=== PATIENT | male | born 1960 | race Caucasian/White ===

== ENCOUNTER 2017-09-23 07:43 | Inpatient (IN) | payer SELFPAY ==
[~2017-09-23] VITALS: Ht 170.2 cm; Wt 97.6 kg
[2017-09-23] VITALS (9 sets, daily range): BP systolic 116–150; BP diastolic 66–84; PULSE 68–86; RESP 14–21; TEMP 97.9–99.1; O2SAT 93–100
[2017-09-23] MEDS ORDERED: SENNOSIDES 8.6 MG TAB PO PRN (08:00)
[2017-09-23] MEDS ORDERED: MAGNESIUM HYDROXIDE SUSP 30 ML CUP PO PRN (08:00)
[2017-09-23] MEDS ORDERED: MISCELLANEOUS NURSING INFORMATION XX SCH (08:00)
[2017-09-23] MEDS ORDERED: LACTULOSE SYRUP 20 GM/30 ML CUP PO PRN (08:00)
[2017-09-23] MEDS ORDERED: HYDROmorphone HCL PF 1 MG/ML VIAL IV PUSH PRN (08:00)
[2017-09-23] MEDS ORDERED: CHLORHEXIDINE GLUCONATE 2 % 1 PACK (2 CLOTHS) TOP PRN (08:00)
[2017-09-23] MEDS ORDERED: BISACODYL 10 MG SUPP RECTAL PRN (08:00)
--- NOTE | 2017-09-23 08:01 | PD ---
HPI Chief Complaint: trauma transfer Time Seen by Provider: 07:55 Travel History International Travel<30 days: No Contact w/Intl Traveler<30days: No Traveled to known affect area: No History of Present Illness HPI The patient is a 56-year-old male who presents emergency department from [facility] as a trauma transfer. The patient apparently fell off a barstool yesterday, was evaluated at [facility] noted to have an intracranial hemorrhage. The patient does admit to drinking alcohol yesterday, was visiting [facility] from [place], [place]. He does not recall the fall. He denies any headache, neck pain, chest pain, shortness breath, nausea, vomiting, abdominal pain, or focal deficits. He does have a history of chronic left knee pain which occasionally "gives out ". He does take a baby aspirin intermittently, denies taking any other anticoagulants. He denies any acute focal deficits. Symptoms are moderate. PFSH Past Medical History Narrative Medical Asthma Past Surgical History Surgical History: No Previous Surgery Social History Alcohol Use: Yes Tobacco Use: Yes Allergies-Medications (Allergen,Severity, Reaction): Coded Allergies: No Known Allergies (Unverified , 09/23/17) Reported Meds & Prescriptions Reported Meds & Active Scripts Active Reported Symbicort Inh (Budesonide/Formoterol Fumarate) 80-4.5 Mcg/Act Aero 1 Puff INH Q12HR Proventil Hfa 6.7 GM Inh (Albuterol Sulfate) 90 Mcg/Act Aer 2 Puff INH Q4-6H PRN Aspirin Children's (Aspirin) 81 Mg Chew 81 Mg CHEW DAILY Review of Systems Except as stated in HPI: all other systems reviewed are Neg HENT: No: Headaches, Neck Pain Cardiovascular: No: Chest Pain or Discomfort Respiratory: No: Shortness of Breath Gastrointestinal: No: Nausea, Vomiting, Abdominal Pain Neurologic: No: Focal Abnormalities, Headache, Change in Mentation, Paresthesia , Sensory Disturbance Psychiatric: Positive: Substance Abuse (patient admits to drinking alcohol yesterday) Physical Exam Narrative GENERAL: Awake, alert, pleasant 56-year-old male who appears his stated age and is in no acute respiratory distress. SKIN: Focused skin assessment warm/dry. HEAD: Atraumatic. Normocephalic. EYES: Pupils equal and round. 3 mm bilateral and reactive. ENT: No nasal bleeding or discharge. Breath smells of alcohol. NECK: Trachea midline. No JVD. CARDIOVASCULAR: Regular rate and rhythm. No murmur appreciated. RESPIRATORY: No accessory muscle use. Clear to auscultation. Breath sounds equal bilaterally. GASTROINTESTINAL: Abdomen soft, non-tender, nondistended. No rebound tenderness. MUSCULOSKELETAL: No obvious deformities. No clubbing. No cyanosis. No edema. Back: No tenderness over the thoracic or lumbar vertebrae. NEUROLOGICAL: Awake and alert. No obvious cranial nerve deficits. Motor grossly within normal limits. Normal speech. Nonfocal. Patient is oriented to month, year, and gasket former. PSYCHIATRIC: Appropriate mood and affect; insight and judgment normal. Data Data Last Documented VS Vital Signs Date Time Temp Pulse Resp B/P (MAP) Pulse Ox O2 Delivery O2 Flow Rate FiO2 09/23/17 07:49 97.9 86 21 150/84 (106) 95 Orders Orders Admit To Inpatient (09/23/17 ) Code Status (09/23/17 07:56) Vital Signs (Adult) JUSTICE.Q1H (09/23/17 07:56) Elevate Head Of Bed (09/23/17 07:56) Sodium Chlor 0.9% 1000 Ml Inj (Ns 1000 M (09/23/17 07:56) Hydromorphone Pf Inj (Dilaudid Pf Inj) (09/23/17 08:00) Famotidine Inj (Pepcid Inj) (09/23/17 09:00) Famotidine (Pepcid) (09/23/17 09:00) Ondansetron Inj (Zofran Inj) (09/23/17 08:00) Complete Blood Count With Diff (09/24/17 04:00) Basic Metabolic Panel (Bmp) (09/24/17 04:00) Shoe Sewing Machine Operator And Tender / Telemetry JUSTICE.Q8H (09/23/17 07:56) Scd Bilateral/Knee High JUSTICE.BID (09/23/17 07:56) ^ Initiate Protocol (09/23/17 07:56) Instruction (09/23/17 07:56) [facility] Nursing Information (09/23/17 08:00) Chlorhexidine 2% Cloth (Chlorhexidine 2% (09/24/17 04:00) Chlorhexidine 2% Cloth (Chlorhexidine 2% (09/23/17 08:00) Mrsa Pcr Surveillance (09/23/17 07:56) Docusate Sodium-Senna (Cara-Colace) (09/23/17 09:00) Magnesium Hydroxide Liq (Milk Of Magnesi (09/23/17 08:00) Sennosides (Senokot) (09/23/17 08:00) Bisacodyl Supp (Dulcolax Supp) (09/23/17 08:00) Lactulose Liq (Lactulose Liq) (09/23/17 08:00) Inpatient Certification (09/23/17 ) Diet Clear Liquid (09/23/17 Breakfast) Acetaminophen 1000 Mg/100 Ml (Ofirmev 10 (09/23/17 09:00) Ct Brain W/O Iv Contrast(Rout) (09/23/17 ) Admit Order (Ed Use Only) (09/23/17 08:50) MDM Medical Decision Making Medical Screen Exam Complete: Yes Emergency Medical Condition: Yes Medical Record Reviewed: Yes Interpretation(s) Labs performed at [facility] WBC 5.8, hemoglobin 15.8, hematocrit 45.3, platelet count 179 PT 13.0, INR 1.0, PTT 23.3 Alcohol 304 Blood type B positive Sodium 136, potassium 4.4, chloride 94, CO2 28, anion gap 14, glucose 135, BUN 10, creatinine 0.82, calcium 8.9, crit and Claritin 110, GFR 97.5 CT of the brain reveals trace acute subdural hemorrhage along the anterior falx on the right, the right tentorial leaflets, and the right middle cranial fossa. Additionally, there is a small amount of acute subarachnoid hemorrhage in the right frontotemporal region. CT of the spine cervical without contrast reveals no acute cervical spine fracture or malalignment. Partially imaged subdural hemorrhage along the right tentorium as previously reported on the same head CT. Degenerative disc disease of the cervical spineis C5-C6 Withers moderate bilateral neural foraminal narrowing and mild canal stenosis EKG at [facility] reveals normal sinus rhythm with a rate 85. Nonspecific T wave changes. Repeat EKG after CPR reveals normal sinus rhythm with nonspecific T-wave changes. No evidence of STEMI. Last Impressions Head CT 09/23/17 0000 Signed Impressions: Service Date/Time: Saturday, September 23, 2017 08:35 - CONCLUSION: Abnormal exam with intraparenchymal blood products identified within the right frontal lobe, right parietal lobe and right temporal lobe. Small amount of subarachnoid blood identified in the region of the sylvian fissure. There is mild effacement of the sulci within this region. No skull fractures seen. Viviana Michele MD Differential Diagnosis Differential diagnosis includes closed head injury, intracranial hemorrhage, subarachnoid hemorrhage, subdural hemorrhage, syncope, cervical fracture, alcohol intoxication, hyponatremia. Narrative Course The patient was a transfer from [facility], already had IV established. The patient was undressed and placed in a gown. I discussed the patient with the admitting trauma surgeon who recommends repeat CT the brain, therefore, noncontrast repeat CT the brain was obtained. The patient denies any acute headache, therefore, pain medications were withheld. The patient will be admitted to the intensive surgical care unit. The patient returned from CT, complain of nausea, and then had an episode of bradycardia and went into asystole. CPR was instituted for 1 minute, the patient was administered oxygen via bag valve ventilation. The patient then regained consciousness and pulses. The patient immediately was alert and oriented, was slightly diaphoretic. We reviewed the telemetry monitoring which did reveal bradycardia going into a short run of asystole. I discussed the findings immediately with the trauma surgeon. The patient may require consultation with the loss prevention detective and/or electronics mechanic apprentice. Defibrillator pads were placed on the patient at bedside. Critical Care Narrative Aggregate critical care time was 15 minutes. Time to perform other separately billable procedures was not included in the critical care time. My time did not include minutes spent treating any other patients simultaneously or on activities that did not directly contribute to the patient's treatment. The services I provided to this patient were to treat and/or prevent clinically significant deterioration that could result in: Anoxia, hypoxia, aspiration, arrhythmia, . I provided critical care services requiring my management, as noted below: Chart data review, documentation time, medication orders and management, vital sign assessments/reviewing monitor data, ordering and reviewing lab tests, ordering and interpreting/reviewing x-rays and diagnostic studies, care of the patient and discussion of the patient with the admitting physicians. Physician Communication Physician Communication I discussed the patient with the trauma surgeon, the patient will be admitted to the intensive surgical care unit. Diagnosis Primary Impression: Subarachnoid hemorrhage Additional Impressions: Subdural hemorrhage Alcohol intoxication Qualified Codes: F10.929 - Alcohol use, unspecified with intoxication, unspecified Admitting Information Admitting Physician Requests: Admit Condition: Serious Walker Sanchez MD Sep 23, 2017 08:01
[2017-09-23] MEDS ORDERED: ASPI81CH7 CHEW (08:03)
[2017-09-23] MEDS ORDERED: SYMB80AE INH (08:03)
[2017-09-23] MEDS ORDERED: ALBU6.7H INH (08:03)
--- NOTE | 2017-09-23 08:50 | RADRPT ---
EXAM DATE/TIME: 09/23/2017 08:35 [facility] COMPARISON: No previous studies available for comparison. INDICATIONS : Fall from stool last night, possible intracranial hemorrhage. RADIATION DOSE: 56.35 CTDIvol (mGy) MEDICAL HISTORY : Asthma. SURGICAL HISTORY : None. ENCOUNTER: Initial ACUITY: 1 day PAIN SCALE: 3/10 LOCATION: Bilateral cranial TECHNIQUE: Multiple contiguous axial images were obtained of the head. Using automated exposure control and adj ustment of the mA and/or kV according to patient size, radiation dose was kept as low as reasonably a chievable to obtain optimal diagnostic quality images. DICOM format image data is available electro nically for review and comparison. FINDINGS: This is an abnormal exam. CEREBRUM: There is acute high density intraparenchymal hemorrhage identified within the region of the right tem poral lobe, right parietal lobe and right frontal lobe with blood products also identified within the subarachnoid space of the right parietal region. There is no evidence of mass effect. The sulci appe ar mildly effaced adjacent to the sylvian fissure at the site of subarachnoid blood. No evidence of m idline shift. The ventricles are normal. POSTERIOR FOSSA: The cerebellum and brainstem are intact. The 4th ventricle is midline. The cerebellopontine angle i s unremarkable. EXTRACRANIAL: The visualized portion of the orbits is intact. SKULL: The calvaria is intact. No evidence of skull fracture. CONCLUSION: Abnormal exam with intraparenchymal blood products identified within the right frontal lobe, right pa rietal lobe and right temporal lobe. Small amount of subarachnoid blood identified in the region of t he sylvian fissure. There is mild effacement of the sulci within this region. No skull fractures seen . Viviana Michele MD on September 23, 2017 at 8:43 Board Certified Radiologist. This report was verified electronically.
[2017-09-23] MEDS: ACETAMINOPHEN 1000 MG/100 ML 100 ML IV SCH ×3 (08:53→20:28)
[2017-09-23] MEDS: FAMOTIDINE 20 MG/2 ML VIAL IV PUSH SCH ×2 (08:53→20:29)
[2017-09-23] MEDS: DOCUSATE SODIUM 50 MG/SENNA 8.6 MG TAB PO SCH ×3 (08:53→20:29)
[2017-09-23] MEDS: SODIUM CHLOR 0.9% 1000 ML INJ 1,000 ML IV SCH ×2 (08:54→19:51)
[2017-09-23] MEDS ORDERED: FAMOTIDINE 20 MG TAB PO SCH (09:00)
[2017-09-23] MEDS ORDERED: ETOMIDATE 40 MG/20 ML VIAL ONE (09:05)
[2017-09-23] MEDS ORDERED: ONDANSETRON HCL 4 MG/2 ML VIAL IV PUSH ONE (09:15)
[2017-09-23 10:10] LABS: AUTOMATED NEUTROPHIL # 6.1 TH/MM3 (1.8-7.7); BASOPHIL % 0.1 % (0.0-2.0); HEMATOCRIT 42.8 % (39.0-51.0); HEMOGLOBIN 15.2 GM/DL (13.0-17.0); LYMPH % 11.5 % (9.0-44.0); LYMPHOCYTE # 0.8 TH/MM3 (1.0-4.8); MEAN CELL VOLUME 90.9 FL (80.0-100.0); MEAN CORPUSCULAR HEMOGLOBIN 32.2 PG (27.0-34.0); MEAN CORPUSCULAR HGB CONC 35.4 % (32.0-36.0); MEAN PLATELET VOLUME 6.8 FL (7.0-11.0); MONO % 3.8 % (0.0-8.0); MONOCYTE # 0.3 TH/MM3 (0-0.9); NEUT % 84.6 % (16.0-70.0); PLATELET COUNT 181 TH/MM3 (150-450); WHITE BLOOD COUNT 7.2 TH/MM3 (4.0-11.0)
[2017-09-23 10:18] LABS: INTERNATIONAL NORMALIZED RATIO 1.1 RATIO; PROTHROMBIN TIME - PATIENT 10.7 SEC (9.8-11.6)
[2017-09-23 10:33] LABS: BICARBONATE 23.2 MEQ/L (21.0-32.0); BLOOD UREA NITROGEN 9 MG/DL (7-18); CHLORIDE 100 MEQ/L (98-107); CREATININE 0.89 MG/DL (0.60-1.30); GLOMERULAR FILTRATION RATE 88 ML/MIN (>89); GLUCOSE,RANDOM 117 MG/DL (74-106); SODIUM (NA) 136 MEQ/L (136-145)
[2017-09-23 10:36] LABS: TROPONIN I LESS THAN 0.02 NG/ML (0.02-0.05)
[2017-09-23] MEDS ORDERED: ALBUTEROL SULFATE 90 MCG/ACT HFA 8 GM INHALER INH PRN (11:15)
[2017-09-23] MEDS: MULTIVITAMIN INJ 10 ML, THIAMINE INJ 100 MG, FOLIC ACID INJ 1 MG in SODIUM CHLORID 0.9%... IV SCH (11:25)
--- NOTE | 2017-09-23 11:25 | HHI.HP ---
History of Present Illness Primary Care Physician No Primary Care Physician Admission Diagnosis subarachnoid hemorrhage, subdural hemorrhage, alcohol intoxication Diagnoses: History of Present Illness 56 y.o male transfer from outside institution fell form bar stool and hit head- workup shows TBI with SAH/SDH,had short episode of SB and asystole had CPR for one minute-and stabilized with normal BP-GCS 15,his GCS was 14 in the transferring institution-it however improved to 15 in [place],neuro intact,no other complaints. Review of Systems Constitutional: DENIES: Diaphoretic episodes, Fatigue, Fever, Weight gain, Weight loss, Chills, Dizziness, Change in appetite, Night Sweats Eyes: DENIES: Blurred vision, Diplopia, Eye inflammation, Eye pain, Vision loss , Photosensitivity, Double Vision Ears, nose, mouth, throat: DENIES: Tinnitus, Hearing loss, Vertigo, Nasal discharge, Oral lesions, Throat pain, Hoarseness, Ear Pain, Running Nose, Epistaxis, Sinus Pain, Toothache, Odynophagia Respiratory: DENIES: Apneas, Cough, Snoring, Wheezing, Hemoptysis, Sputum production, Shortness of breath Cardiovascular: DENIES: Chest pain, Palpitations, Syncope, Dyspnea on Exertion , PND, Lower Extremity Edema, Orthopnea, Claudication Gastrointestinal: DENIES: Abdominal pain, Black stools, Bloody stools, Constipation, Diarrhea, Nausea, Vomiting, Difficulty Swallowing, Anorexia Genitourinary: DENIES: Sexual dysfunction, Urinary frequency, Urinary incontinence, Urgency, Hematuria, Dysuria, Nocturia, Penile Discharge, Testicular Pain, Testicular Swelling Musculoskeletal: DENIES: Joint pain, Muscle aches, Stiffness, Joint Swelling, Back pain, Neck pain Integumentary: DENIES: Abnormal pigmentation, Nail changes, Pruritus, Rash Hematologic/lymphatic: DENIES: Bruising, Lymphadenopathy Immunologic/allergic: DENIES: Eczema, Urticaria Neurologic: DENIES: Abnormal gait, Headache, Localized weakness, Paresthesias, Seizures, Speech Problems, Tremor, Poor Balance Psychiatric: DENIES: Anxiety, Confusion, Mood changes, Depression, Hallucinations, Agitation, Suicidal Ideation, Homicidal Ideation, Delusions Past Family Social History Allergies: Coded Allergies: No Known Allergies (Unverified , 09/23/17) Past Medical History Asthma Past Surgical History none Reported Medications asthma meds,ASA Social History ETOH occ Physical Exam Vital Signs Vital Signs Date Time Temp Pulse Resp B/P (MAP) Pulse Ox O2 Delivery O2 Flow Rate FiO2 09/23/17 10:23 09/23/17 09:18 98 Nasal Cannula 2.00 09/23/17 09:09 71 14 144/80 (101) 100 Nasal Cannula 2.00 09/23/17 07:49 97.9 86 21 150/84 (106) 95 Physical Exam GENERAL: This is a well-nourished, well-developed patient, in no apparent distress. SKIN: . Cool and dry. HEAD: Atraumatic. Normocephalic. EYES: Pupils equal round and reactive. Extraocular motions intact. ENT: Nose without bleeding, purulent drainage or septal hematoma. Airway patent. NECK: Trachea midline. No JVD or lymphadenopathy. Supple, nontender. CARDIOVASCULAR: Regular rate and rhythm without murmurs, gallops, or rubs. RESPIRATORY: Clear to auscultation. Breath sounds equal bilaterally. No wheezes , rales, or rhonchi. GASTROINTESTINAL: Abdomen soft, non-tender, nondistended No guarding. MUSCULOSKELETAL: Extremities without clubbing, cyanosis, or edema. No joint tenderness, effusion, or edema noted. No calf tenderness. NEUROLOGICAL: Awake and alert. Cranial nerves II through XII intact. Motor and sensory grossly within normal limits. Five out of 5 muscle strength in all muscle groups. Normal speech. Laboratory Laboratory Tests Test 09/23/17 09:56 White Blood Count 7.2 Red Blood Count 4.70 Hemoglobin 15.2 Hematocrit 42.8 Mean Corpuscular Volume 90.9 Mean Corpuscular Hemoglobin 32.2 Mean Corpuscular Hemoglobin Concent 35.4 Red Cell Distribution Width 14.0 Platelet Count 181 Mean Platelet Volume 6.8 Neutrophils (%) (Auto) 84.6 Lymphocytes (%) (Auto) 11.5 Monocytes (%) (Auto) 3.8 Eosinophils (%) (Auto) 0.0 Basophils (%) (Auto) 0.1 Neutrophils # (Auto) 6.1 Lymphocytes # (Auto) 0.8 Monocytes # (Auto) 0.3 Eosinophils # (Auto) 0.0 Basophils # (Auto) 0.0 CBC Comment DIFF FINAL Differential Comment Prothrombin Time 10.7 Prothromb Time International Ratio 1.1 Activated Partial Thromboplast Time 22.2 Blood Urea Nitrogen 9 Creatinine 0.89 Random Glucose 117 Calcium Level 8.0 Sodium Level 136 Potassium Level 4.1 Chloride Level 100 Carbon Dioxide Level 23.2 Anion Gap 13 Estimat Glomerular Filtration Rate 88 Troponin I LESS THAN 0.02 Result Diagram: 09/23/17 0956 09/23/17 0956 Imaging Last [address] 09/23/17 0000 Signed Impressions: Service Date/Time: Saturday, September 23, 2017 08:35 - CONCLUSION: Abnormal exam with intraparenchymal blood products identified within the right frontal lobe, right parietal lobe and right temporal lobe. Small amount of subarachnoid blood identified in the region of the sylvian fissure. There is mild effacement of the sulci within this region. No skull fractures seen. MD John Mejia VTE Risk Assessment Caprinheidi VTE Risk Assessment: Mod/High Risk (score >= 2) VTE Pharm Contraindication: High risk for bleeding Caprini Risk Assessment Model Point Value = 1 Point Value = 2 Point Value = 3 Point Value = 5 Age 41-60 Minor surgery BMI > 25 kg/m2 Swollen legs Varicose veins or History of unexplained or recurrent spontaneous Oral contraceptives or hormone replacement Sepsis (< 1 month) Serious lung disease, including pneumonia (< 1 month) Abnormal pulmonary function Acute myocardial infarction Congestive heart failure (< 1 month) History of inflammatory bowel disease Medical patient at bed rest Age 61-74 Arthroscopic surgery Major open surgery (> 45 min) Laparoscopic surgery (> 45 min) Malignancy Confined to bed (> 72 hours) Immobilizing plaster cast Central venous access Age >= 75 History of VTE Family history of VTE Factor V Leiden Prothrombin [id number] Lupus anticoagulant Anticardiolipin antibodies Elevated serum homocysteine Heparin-induced thrombocytopenia Other congenital or acquired thrombophilia Stroke (< 1 month) Elective arthroplasty Hip, pelvis, or leg fracture Acute spinal cord injury (< 1 month) Prophylaxis Regimen Total Risk Factor Score Risk Level Prophylaxis Regimen 0-1 Low Early ambulation 2 Moderate Order ONE of the following: *Sequential Compression Device (SCD) *Heparin 5000 units SQ BID 3-4 Higher Order ONE of the following medications: *Heparin 5000 units SQ TID *Enoxaparin/Lovenox 40 mg SQ daily (WT < 150 kg, CrCl > 30 mL/min) *Enoxaparin/Lovenox 30 mg SQ daily (WT < 150 kg, CrCl > 10-29 mL/min) *Enoxaparin/Lovenox 30 mg SQ BID (WT < 150 kg, CrCl > 30 mL/min) AND/OR *Sequential Compression Device (SCD) 5 or more Highest Order ONE of the following medications: *Heparin 5000 units SQ TID (Preferred with Epidurals) *Enoxaparin/Lovenox 40 mg SQ daily (WT < 150 kg, CrCl > 30 mL/min) *Enoxaparin/Lovenox 30 mg SQ daily (WT < 150 kg, CrCl > 10-29 mL/min) *Enoxaparin/Lovenox 30 mg SQ BID (WT < 150 kg, CrCl > 30 mL/min) AND *Sequential Compression Device (SCD) Assessment and Plan Assessment and Plan SAH,IPH gcs 15 short episode of asystole admit ICU Melchor VELASQUEZ consult FU CT in Joy Hernandez MD Sep 23, 2017 11:25
--- NOTE | 2017-09-23 12:39 | MB ---
cc: Felipe Breaux MD DATE OF CONSULT: 09/23/2017 REASON FOR CONSULTATION: Brief episode of asystole. HISTORY OF PRESENT ILLNESS: The patient is a 56-year-old white male with a history of asthma and hypertension, who was brought in as a trauma alert after falling from a bar stool, causing considerable head trauma and subarachnoid hemorrhage. At some point yesterday after returning from a CT scan, the patient apparently developed bradycardia and then brief asystole necessitating CPR for a minute. The patient denies any prior history of syncope or lightheadedness. Chronically, he has rare episodes of vertigo. He also denies chest pain, change in chronic mild to moderate dyspnea, palpitations, pedal edema, and paroxysmal nocturnal dyspnea. PAST MEDICAL HISTORY: 1. Asthma. 2. Hypertension. CARDIAC MEDICATIONS AT HOME: Aspirin 81 mg daily. ALLERGIES: NO KNOWN DRUG ALLERGIES. FAMILY HISTORY: There is no significant family history of cardiac disease. SOCIAL HISTORY: The patient denies any history of tobacco abuse. He drinks occasional alcohol. REVIEW OF SYSTEMS: As in history of present illness, otherwise negative or noncontributory. He also currently denies headache, nausea, vomiting, abdominal pain, melena, dyspepsia, and bright red blood per rectum. PHYSICAL EXAMINATION: VITAL SIGNS: His blood pressure 116/66 with a pulse of 75, respirations 16. GENERAL: He is a well-developed, well-nourished white male, in no acute distress. NECK: Jugular venous pressure is normal. Carotid pulses are 2+ bilaterally and without bruits. CHEST: Reveals clear lungs sanders. CARDIAC: He has a regular rhythm and rate without S3, S4, or murmur. ABDOMEN: He has a soft, nontender abdomen Bowel sounds are present. There is no definite hepatosplenomegaly. EXTREMITIES: Reveals no clubbing, cyanosis, or edema. LABORATORY DATA: Includes normal CBC. Potassium 4.1, BUN 9, creatinine 0.89. Troponin less than 0.02. EKG is currently not available. IMPRESSION: Brief episode of bradycardia degenerating into asystole in this 56-year-old white male with a history of hypertension and asthma, admitted as a trauma alert after falling off a bar stool, causing head trauma. The patient has had no further bradyarrhythmias. I suspect the episode of bradycardia was due to his subarachnoid hemorrhage. He is on no atrioventricular juwan suppressing drugs. There is no evidence for acute coronary syndrome. RECOMMENDATIONS: 1. Continue to monitor. 2. Please call if the patient has recurrent significant bradyarrhythmias. 3. Check a 2-D echo to assess his left ventricular function. MD LEELA Keith/DARWIN , 12:21 PM , 12:38 PM MTDScooter
[2017-09-23] MEDS: levETIRAcetam INJ 500 MG in SODIUM CHLORIDE 0.9% INJ 100 ML IV SCH ×2 (12:51→20:28)
[2017-09-23 17:33] LABS: TROPONIN I LESS THAN 0.02 NG/ML (0.02-0.05)
--- NOTE | 2017-09-23 18:21 | EKG ---
Date Performed: 09/23/2017 Time Performed: 07:57:32 PTAGE: 56 years EKG: Sinus rhythm NONSPECIFIC T-WAVE ABNORMALITY BORDERLINE ECG NO PREVIOUS TRACING DOCTOR: Marlon Eason Interpretating Date/Time 09/23/2017 18:18:58
--- NOTE | 2017-09-23 18:22 | EKG ---
Date Performed: 09/23/2017 Time Performed: 09:05:52 PTAGE: 56 years EKG: Sinus rhythm NONSPECIFIC T-WAVE ABNORMALITY BORDERLINE ECG Compared to PREVIOUS TRACING , no change PREVIOUS TRACING DOCTOR: Marlon Eason Interpretating Date/Time 09/23/2017 18:19:16
--- NOTE | 2017-09-23 20:01 | PD.CONS ---
History of Present Illness Service Neurosurgery Consult Requested By General surgery trauma service Reason for Consult Traumatic brain injury Primary Care Physician No Primary Care Physician Diagnoses: History of Present Illness Mr. Amos is a pleasant 86-year-old gentleman who states that he was at a bar last evening and recalls getting up from the barstool and walking. He does not remember anything after that until he woke up in the hospital. He Was Transferred to [facility] after being seen at an outside hospital. Initial All Coma Score 15 upon arrival. He complains of mild headache. No nausea or vomiting today. He has no significant neck or low back pain. No blurred vision diplopia. No long-term memory loss. No significant pain weakness or numbness in the extremities except for some chronic left knee pain. He reportedly did have an episode of bradycardia requiring brief CPR for resuscitation after his CT scan in the emergency room. Due to this event he has been seen by cardiology and a 2-D echocardiogram recommended. 56 y.o male transfer from outside institution fell form bar stool and hit head- workup shows TBI with SAH/SDH,had short episode of SB and asystole had CPR for one minute-and stabilized with normal BP-GCS 15,his GCS was 14 in the transferring institution-it however improved to 15 in [place],neuro intact,no other complaints. Review of Systems Constitutional: DENIES: Fever, Dizziness Eyes: DENIES: Blurred vision, Diplopia Ears, nose, mouth, throat: DENIES: Hearing loss, Vertigo Respiratory: DENIES: Shortness of breath Cardiovascular: DENIES: Chest pain Gastrointestinal: DENIES: Abdominal pain, Nausea, Vomiting Musculoskeletal: COMPLAINS OF: Joint pain, Muscle aches, DENIES: Back pain, Neck pain Hematologic/lymphatic: DENIES: Bruising Neurologic: COMPLAINS OF: Headache, DENIES: Abnormal gait Psychiatric: DENIES: Anxiety, Confusion Past Family Social History Allergies: Coded Allergies: No Known Allergies (Unverified , 09/23/17) Past Medical History Hypertension Asthma No history of significant cardiac disease, diabetes, gastrointestinal disease Past Surgical History No major surgeries reported Reported Medications Reported Meds & Active Scripts Active Reported Symbicort Inh (Budesonide/Formoterol Fumarate) 80-4.5 Mcg/Act Aero 1 Puff INH Q12HR Proventil Hfa 6.7 GM Inh (Albuterol Sulfate) 90 Mcg/Act Aer 2 Puff INH Q4-6H PRN Aspirin Children's (Aspirin) 81 Mg Chew 81 Mg CHEW DAILY Family History No history of cardiac disease, diabetes, cancer in the family Social History Does not smoke cigarettes Occasional alcohol Physical Exam Vital Signs Vital Signs Date Time Temp Pulse Resp B/P (MAP) Pulse Ox O2 Delivery O2 Flow Rate FiO2 09/23/17 19:00 94 Nasal Cannula 09/23/17 18:00 75 09/23/17 16:00 98.5 81 17 122/66 (84) 93 09/23/17 16:00 81 09/23/17 14:00 74 09/23/17 12:00 98.8 75 16 116/66 (83) 93 09/23/17 12:00 75 09/23/17 10:30 75 09/23/17 10:30 99.1 76 16 144/76 (98) 97 09/23/17 10:30 97 Room Air 09/23/17 10:23 09/23/17 09:18 98 Nasal Cannula 2.00 09/23/17 09:09 71 14 144/80 (101) 100 Nasal Cannula 2.00 09/23/17 07:49 97.9 86 21 150/84 (106) 95 Physical Exam GENERAL: This is a well-nourished, well-developed patient, no apparent distress. SKIN: No abrasions, contusion, rash noted. Skin warm and dry. HEAD: Atraumatic. Normocephalic. No temporal or scalp tenderness. EYES: Sclerae are clear and nonicteric ENT: No facial edema or ecchymosis. No periorbital edema. No CSF otorrhea or rhinorrhea. No palpable facial fracture or deformity. NECK: Trachea midline. No cervical spine tenderness. CARDIOVASCULAR: Regular rate and rhythm without murmurs, gallops, or rubs. RESPIRATORY: Clear to auscultation. Breath sounds equal bilaterally. No wheezes , rales, or rhonchi. GASTROINTESTINAL: Abdomen soft, non-tender, nondistended. No hepato-splenomegaly , or palpable masses. No guarding. MUSCULOSKELETAL: Extremities without cyanosis, or edema. No joint tenderness except left knee with range of motion, or edema noted. No calf tenderness. Dorsalis pedis pulses 2+ bilateral NEUROLOGICAL: Awake and alert Oriented X 3 Speech is clear Conversant and appropriate Follow simple commands well Answers questions appropriately Reasonable judgment and insight Recent and remote memory are intact No evidence of anxiety or depression Pupils are equal and reactive to accommodation. Extra-ocular movements, visual sanders to confrontation, facial sensorimotor, tongue, palate, sternocleidomastoid testing, hearing to finger rub testing, and bilateral shoulder shrug are all intact. Sensation is intact to light touch in all extremities Strength normal major flexion and extension groups all extremities Gricelda's absent bilaterally No ankle clonus Plantar responses absent bilateral Fine motor movements intact upper extremities Laboratory Laboratory Tests Test 09/23/17 09:56 09/23/17 11:15 09/23/17 16:36 White Blood Count 7.2 Red Blood Count 4.70 Hemoglobin 15.2 Hematocrit 42.8 Mean Corpuscular Volume 90.9 Mean Corpuscular Hemoglobin 32.2 Mean Corpuscular Hemoglobin Concent 35.4 Red Cell Distribution Width 14.0 Platelet Count 181 Mean Platelet Volume 6.8 Neutrophils (%) (Auto) 84.6 Lymphocytes (%) (Auto) 11.5 Monocytes (%) (Auto) 3.8 Eosinophils (%) (Auto) 0.0 Basophils (%) (Auto) 0.1 Neutrophils # (Auto) 6.1 Lymphocytes # (Auto) 0.8 Monocytes # (Auto) 0.3 Eosinophils # (Auto) 0.0 Basophils # (Auto) 0.0 CBC Comment DIFF FINAL Differential Comment Prothrombin Time 10.7 Prothromb Time International Ratio 1.1 Activated Partial Thromboplast Time 22.2 Blood Urea Nitrogen 9 Creatinine 0.89 Random Glucose 117 Calcium Level 8.0 Sodium Level 136 Potassium Level 4.1 Chloride Level 100 Carbon Dioxide Level 23.2 Anion Gap 13 Estimat Glomerular Filtration Rate 88 Troponin I LESS THAN 0.02 LESS THAN 0.02 Nasal Screen MRSA (PCR) MRSA NOT DETECTED Total Creatine Kinase 285 Result Diagram: 09/23/17 0956 09/23/17 0956 Imaging 09/23/17 CT scan head images reviewed by the undersigned. Agree with findings as noted below: Head CT 09/23/17 0000 Signed Impressions: Service Date/Time: Saturday, September 23, 2017 08:35 - CONCLUSION: Abnormal exam with intraparenchymal blood products identified within the right frontal lobe, right parietal lobe and right temporal lobe. Small amount of subarachnoid blood identified in the region of the sylvian fissure. There is mild effacement of the sulci within this region. No skull fractures seen. Viviana Michele MD Assessment and Plan Assessment and Plan Impression: 1. Traumatic brain injury with relatively mild primarily right parietal subarachnoid hemorrhage without significant mass effect. Recommendations: Findings were discussed with the patient. May advance diet and activity as tolerated Follow-up CT scan of the head 09/24/17. Nontender bowel DVT prophylaxis Hosea Carter MD Sep 23, 2017 20:01
[2017-09-23] MEDS: BUDESONIDE-FORMOTEROL 80/4.5 MCG INHALER INH SCH ×2 (20:18→21:00)
[2017-09-23] MEDS: HYDROmorphone HCL PF 2 MG/ML VIAL IV PUSH PRN (22:07)
[2017-09-24] VITALS (10 sets, daily range): BP systolic 140–174; BP diastolic 71–88; PULSE 57–64; RESP 14–18; TEMP 98.2–99.5; O2SAT 93–97
[2017-09-24 00:17] LABS: TROPONIN I LESS THAN 0.02 NG/ML (0.02-0.05)
[2017-09-24] MEDS: HYDROmorphone HCL PF 2 MG/ML VIAL IV PUSH PRN ×2 (02:44→06:22)
[2017-09-24] MEDS: ACETAMINOPHEN 1000 MG/100 ML 100 ML IV SCH (03:00)
[2017-09-24] MEDS ORDERED: CHLORHEXIDINE GLUCONATE 2 % 1 PACK (2 CLOTHS) TOP SCH (04:00)
[2017-09-24 05:25] LABS: AUTOMATED NEUTROPHIL # 4.9 TH/MM3 (1.8-7.7); BASOPHIL # 0.1 TH/MM3 (0-0.2); EOSINOPHIL % 0.6 % (0.0-4.0); HEMATOCRIT 43.9 % (39.0-51.0); HEMOGLOBIN 15.2 GM/DL (13.0-17.0); LYMPH % 16.1 % (9.0-44.0); LYMPHOCYTE # 1.1 TH/MM3 (1.0-4.8); MEAN CELL VOLUME 92.2 FL (80.0-100.0); MEAN CORPUSCULAR HGB CONC 34.7 % (32.0-36.0); MEAN PLATELET VOLUME 7.3 FL (7.0-11.0); MONO % 8.9 % (0.0-8.0); MONOCYTE # 0.6 TH/MM3 (0-0.9); NEUT % 73.4 % (16.0-70.0); PLATELET COUNT 175 TH/MM3 (150-450); RED BLOOD COUNT 4.76 MIL/MM3 (4.50-5.90); WHITE BLOOD COUNT 6.7 TH/MM3 (4.0-11.0)
[2017-09-24 05:56] LABS: BICARBONATE 28.4 MEQ/L (21.0-32.0); CALCIUM 8.4 MG/DL (8.5-10.1); CREATININE 0.95 MG/DL (0.60-1.30)
--- NOTE | 2017-09-24 06:13 | RADRPT ---
EXAM DATE/TIME: 09/24/2017 05:25 [facility] COMPARISON: CT BRAIN W/O CONTRAST, September 23, 2017, 8:35. INDICATIONS : Follow up traumatic brain injury. RADIATION DOSE: 56.35 CTDIvol (mGy) MEDICAL HISTORY : Non-responsive. SURGICAL HISTORY : Non-responsive. ENCOUNTER: Subsequent ACUITY: 1 day PAIN SCALE: Non-responsive LOCATION: cranial TECHNIQUE: Multiple contiguous axial images were obtained of the head. Using automated exposure control and adj ustment of the mA and/or kV according to patient size, radiation dose was kept as low as reasonably a chievable to obtain optimal diagnostic quality images. DICOM format image data is available electro nically for review and comparison. FINDINGS: CEREBRUM: The ventricles are normal for age. Focal areas of parenchymal hemorrhage in the right frontal, tempor al and parietal lobes are unchanged. Some subarachnoid blood in the region of the sylvian fissure. Ar ea of encephalomalacia in the right olfactory tract. No extra-axial fluid collections are seen. POSTERIOR FOSSA: The cerebellum and brainstem are intact. The 4th ventricle is midline. The cerebellopontine angle i s unremarkable. EXTRACRANIAL: The visualized portion of the orbits is intact. SKULL: The calvaria is intact. No evidence of skull fracture. CONCLUSION: 1. Stable areas of right-sided parenchymal and subarachnoid hemorrhage. 2. Resolving contusion/encephalomalacia in the right olfactory tract. 3. No midline shift. No new hemorrhage. Yobani Mccall MD on September 24, 2017 at 6:07 Board Certified Radiologist. This report was verified electronically.
[2017-09-24] MEDS: SODIUM CHLOR 0.9% 1000 ML INJ 1,000 ML IV SCH (06:19)
[2017-09-24] MEDS: BUDESONIDE-FORMOTEROL 80/4.5 MCG INHALER INH SCH ×2 (08:43→21:21)
[2017-09-24] MEDS: DOCUSATE SODIUM 50 MG/SENNA 8.6 MG TAB PO SCH ×2 (08:43→21:19)
[2017-09-24] MEDS: FAMOTIDINE 20 MG/2 ML VIAL IV PUSH SCH (08:43)
[2017-09-24] MEDS: levETIRAcetam INJ 500 MG in SODIUM CHLORIDE 0.9% INJ 100 ML IV SCH (08:43)
[2017-09-24] MEDS: ONDANSETRON HCL 4 MG/2 ML VIAL IV PUSH PRN ×2 (09:27→18:15)
[2017-09-24] MEDS ORDERED: oxyCODONE/ACETAMINOPHEN 10 MG/325 MG TAB PO PRN (09:30)
[2017-09-24] MEDS ORDERED: LISINOPRIL 10 MG TAB PO SCH (10:30)
--- NOTE | 2017-09-24 13:34 | RADRPT ---
EXAM DATE/TIME: 09/24/2017 12:34 [facility] COMPARISON: No previous studies available for comparison. INDICATIONS : Syncope. MEDICAL HISTORY : Headache. Asthma. Tobacco use. Anticoagulant therapy, Aspirin. SURGICAL HISTORY : None. ENCOUNTER: Initial ACUITY: 1 day PAIN SCORE: 0/10 LOCATION: Bilateral neck PEAK SYSTOLIC VELOCITIES (cm/sec): ICA/CCA RATIO: Right: 0.8 Left: 0.8 ICA: Right: 59 Left: 65 CCA: Right: 71 Left: 78 ECA: Right: 92 Left: 75 VERTEBRAL: Right: 54 antegrade Left: 50 antegrade Elevated flow velocities and ICA/CCA ratios have been found to correlate with increased degrees of vessel stenosis, calculated as percentage of diameter relative to a normal segment of distal ICA/CCA FINDINGS: RIGHT CAROTID: No significant stenosis is visualized. There is minimal calcified atherosclerotic plaque at the bifur cation. The waveforms are within normal limits. LEFT CAROTID: No significant stenosis is visualized. There is minimal calcified atherosclerotic plaque at the bifur cation. The waveforms are within normal limits. VERTEBRAL ARTERIES: Antegrade flow is seen in both vertebral arteries. MISCELLANEOUS: None. CONCLUSION: 1. Minimal are described plaquing of the bifurcations. 2. No hemodynamically significant carotid artery stenosis identified. Zhang Koenig MD on September 24, 2017 at 13:22 Board Certified Radiologist. This report was verified electronically.
[2017-09-24] MEDS: MULTIVITAMIN INJ 10 ML, THIAMINE INJ 100 MG, FOLIC ACID INJ 1 MG in SODIUM CHLORID 0.9%... IV SCH (14:51)
--- NOTE | 2017-09-24 16:29 | HHI.CCPN ---
Subjective Brief History 56 y.o male transfer from outside institution fell form bar stool and hit head. Workup reveals TBI with SAH/SDH,had short episode of SB and asystole had CPR for one minute-and stabilized with normal BP-GCS 15,his GCS was 14 in the transferring institution-it however improved to 15 in [place],neuro intact,no other complaints. Since arrival patient has been awake and alert complaining about headache and dizziness 24 Hour Review/Hospital Course 09/24/2017 Patient awake alert oriented Neurologically fully intact [place] Coma Scale 15 Motorically stable no lateralization no facial droop or deficit Bilateral equal tendon reflexes and no pathologic reflexes Patient still complaining about some dizziness Able to eat drink can stand Repeat CT scan reveals gradual resolution of the sub-dural and subarachnoid bleed Transfer patient to floor Further care per clinical indices most likely patient will be discharged home tomorrow Objective Vital Signs Date Time Temp Pulse Resp B/P (MAP) Pulse Ox O2 Delivery O2 Flow Rate FiO2 09/24/17 16:00 99.5 61 16 140/82 (101) 96 09/24/17 08:00 Room Air 09/23/17 09:18 2.00 Intake and Output 09/24/17 09/24/17 09/25/17 08:00 16:00 00:00 Intake Total 1069 ml 325 ml Output Total 1850 ml Balance -781 ml 325 ml Result Diagram: 09/24/17 0341 09/24/17 0341 Imaging Last [address] 09/24/17 0600 Signed Impressions: Service Date/Time: Sunday, September 24, 2017 05:25 - CONCLUSION: 1. Stable areas of right-sided parenchymal and subarachnoid hemorrhage. 2. Resolving contusion/encephalomalacia in the right olfactory tract. 3. No midline shift. No new hemorrhage. Yobani Mccall MD Disinhibition Score: 14.00 Aggression Score: 14.00 Lability Score: 14.00 Agitated Behavior Total Score: 14 Assessment and Plan Attestation Critical care time 32 minute Malinda Hurtado MD Sep 24, 2017 16:29
[2017-09-24] MEDS: oxyCODONE/ACETAMINOPHEN 5 MG/325 MG TAB PO PRN ×2 (17:05→21:20)
--- NOTE | 2017-09-24 18:33 | HHI.NSPN ---
History Chief Complaint: headache Interval History 56-year-old male fell at a bar while intoxicated. Complains of persistent headache and dizziness. No nausea vomiting Exam Results Vital Signs Date Time Temp Pulse Resp B/P (MAP) Pulse Ox O2 Delivery O2 Flow Rate FiO2 09/24/17 18:11 167/87 (113) 09/24/17 18:02 98.2 58 18 95 09/24/17 08:00 Room Air 09/23/17 09:18 2.00 Intake and Output 09/24/17 09/24/17 09/25/17 08:00 16:00 00:00 Intake Total 1069 ml 325 ml 100 ml Output Total 1850 ml 650 ml Balance -781 ml 325 ml -550 ml Physical Examination Gen.: Normally developed gentleman in no apparent distress Respirations regular, nonlabored Neurologic: Awake and alert Conversant appropriately Speech clear Extraocular movements intact Facial motor movement symmetric Sensation light touch intact all extremities Strength within normal limits major flexion-extension groups all extremities 09/24/17 follow-up CT scan head images reviewed by the undersigned. Stable primarily right frontoparietal parenchymal and subarachnoid hemorrhage with improving subfrontal contusion without significant mass effect. No significant hydrocephalus. No pneumocephalus. Medical Decision Making Impression and Plan Impression: 1. Traumatic brain injury. Primarily right frontoparietal contusions and subarachnoid hemorrhage without significant mass effect. Stable on follow-up CT scan 09/24/17 Plan: Patient is stable for transfer to regular floor from neurosurgical standpoint. May advance diet and activity as tolerated Continue non-chemical DVT prophylaxis Ulcer prophylaxis Hosea Carter MD Sep 24, 2017 18:33
[2017-09-24] MEDS: levETIRAcetam 500 MG TAB PO SCH (21:19)
[2017-09-24] MEDS: FAMOTIDINE 20 MG TAB PO SCH (21:19)
[2017-09-24] MEDS: LISINOPRIL 20 MG TAB PO SCH (21:19)
[2017-09-25 00:33] VITALS: BP 163/90; PULSE 50; RESP 17; TEMP 98.5; O2SAT 94
[2017-09-25 04:41] VITALS: BP 148/81; PULSE 59; RESP 17; TEMP 97.9; O2SAT 94
[2017-09-25 08:00] VITALS: BP 153/88; PULSE 65; RESP 17; TEMP 98.4; O2SAT 94
[2017-09-25] MEDS ORDERED: amLODIPine BESYLATE 5 MG TAB PO SCH (09:00)
[2017-09-25] MEDS: MULTIVITAMIN INJ 10 ML, THIAMINE INJ 100 MG, FOLIC ACID INJ 1 MG in SODIUM CHLORID 0.9%... IV SCH (09:32)
[2017-09-25] MEDS: levETIRAcetam 500 MG TAB PO SCH ×2 (09:33→20:19)
[2017-09-25] MEDS: LISINOPRIL 20 MG TAB PO SCH ×2 (09:33→20:19)
[2017-09-25] MEDS: FAMOTIDINE 20 MG TAB PO SCH ×2 (09:33→20:19)
[2017-09-25] MEDS: DOCUSATE SODIUM 50 MG/SENNA 8.6 MG TAB PO SCH ×2 (09:33→20:19)
[2017-09-25] MEDS: ONDANSETRON HCL 4 MG/2 ML VIAL IV PUSH PRN (09:34)
[2017-09-25] MEDS: BUDESONIDE-FORMOTEROL 80/4.5 MCG INHALER INH SCH ×2 (09:34→20:19)
[2017-09-25] MEDS: ACETAMINOPHEN 325 MG TAB PO PRN ×2 (09:34→15:08)
[2017-09-25 12:23] VITALS: BP 172/89; PULSE 59; RESP 18; TEMP 98.1; O2SAT 94
[2017-09-25 16:00] VITALS: BP 145/79; PULSE 66; RESP 18; TEMP 97.7; O2SAT 94
--- NOTE | 2017-09-25 16:25 | HHI.PR ---
Subjective Subjective Notes Hypertensive on 2 BP agents Waiting on Echo results Patient complains of vertigo Objective Vitals/I&O Vital Signs Date Time Temp Pulse Resp B/P (MAP) Pulse Ox O2 Delivery O2 Flow Rate FiO2 09/25/17 12:23 98.1 59 18 172/89 (116) 94 09/24/17 08:00 Room Air 09/23/17 09:18 2.00 Labs Laboratory Tests Test 09/23/17 09:56 09/23/17 11:15 09/23/17 23:17 09/24/17 03:41 Prothrombin Time 10.7 SEC Prothromb Time International Ratio 1.1 RATIO Activated Partial Thromboplast Time 22.2 SEC Nasal Screen MRSA (PCR) MRSA NOT DETECTED Total Creatine Kinase 265 U/L Troponin I LESS THAN 0.02 NG/ML White Blood Count 6.7 TH/MM3 Red Blood Count 4.76 MIL/MM3 Hemoglobin 15.2 GM/DL Hematocrit 43.9 % Mean Corpuscular Volume 92.2 FL Mean Corpuscular Hemoglobin 32.0 PG Mean Corpuscular Hemoglobin Concent 34.7 % Red Cell Distribution Width 14.0 % Platelet Count 175 TH/MM3 Mean Platelet Volume 7.3 FL Neutrophils (%) (Auto) 73.4 % Lymphocytes (%) (Auto) 16.1 % Monocytes (%) (Auto) 8.9 % Eosinophils (%) (Auto) 0.6 % Basophils (%) (Auto) 1.0 % Neutrophils # (Auto) 4.9 TH/MM3 Lymphocytes # (Auto) 1.1 TH/MM3 Monocytes # (Auto) 0.6 TH/MM3 Eosinophils # (Auto) 0.0 TH/MM3 Basophils # (Auto) 0.1 TH/MM3 CBC Comment DIFF FINAL Differential Comment Blood Urea Nitrogen 10 MG/DL Creatinine 0.95 MG/DL Random Glucose 87 MG/DL Calcium Level 8.4 MG/DL Sodium Level 141 MEQ/L Potassium Level 4.0 MEQ/L Chloride Level 106 MEQ/L Carbon Dioxide Level 28.4 MEQ/L Anion Gap 7 MEQ/L Estimat Glomerular Filtration Rate 81 ML/MIN Radiology Last Impressions Head CT 09/24/17 0600 Signed Impressions: Service Date/Time: Sunday, September 24, 2017 05:25 - CONCLUSION: 1. Stable areas of right-sided parenchymal and subarachnoid hemorrhage. 2. Resolving contusion/encephalomalacia in the right olfactory tract. 3. No midline shift. No new hemorrhage. Yobani Mccall MD Carotid Artery Ultrasound 09/24/17 0000 Signed Impressions: Service Date/Time: Sunday, September 24, 2017 12:34 - CONCLUSION: 1. Minimal are described plaquing of the bifurcations. 2. No hemodynamically significant carotid artery stenosis identified. Zhang Koenig MD Disinhibition Score: 14.00 Aggression Score: 14.00 Lability Score: 14.00 Agitated Behavior Total Score: 14 Narrative Exam GENERAL: 56-year-old well-nourished, well developed male lying in bed in no acute distress. SKIN: Warm and dry. HEAD: Normocephalic. EYES: Pupils equal and round. No scleral icterus. ENT: No nasal bleeding or discharge. Mucous membranes pink and moist. NECK: Trachea midline. No JVD. CARDIOVASCULAR: Regular rate and rhythm. RESPIRATORY: No accessory muscle use. Lungs clear to auscultation. Breath sounds equal bilaterally. GASTROINTESTINAL: Abdomen soft, non-tender, nondistended. + BS. MUSCULOSKELETAL: Extremities without cyanosis, or edema. MAEW, + perfused NEUROLOGICAL: Awake and alert. Normal speech. A/P Assessment and Plan [place] [facility] [place]: Fell off a barstool striking his head. + LOC. Required short period of CPR with ROSC after 1 minute. Transferred for trauma services. INJURIES: RIGHT frontal, parietal, temporal IPH SAH PMHx: asthma, ETOH use, HTN RIGHT frontal, parietal, temporal IPH, SAH Neurosurgery consulted Supportive care PO Keppra Repeat CT brain on 09/24 stable Avoid second head injury Post-concussive education Fall US Carotids- minimal plaque BILAT EKG- SR Echo pending HTN Lisinopril 20mg PO BID Norvasc 5mg QD Still hypertensive despite 2 agents RN to notify Cardiology for further recommendations Plan of care discussed with patient at bedside. Collaborating trauma M.Scooter. agrees with plan. Case management consulted to assist with discharge planning. Plan to DC 1-2 days. Attending Statement The exam, history, and the medical decision-making described in the above note were completed with the assistance of the mid-level provider. I reviewed and agree with the findings presented. I attest that I had a [id number] encounter with the patient on the same day, and personally performed and documented my assessment and findings in the medical record. Patient s/p fall from standing Pain controlled Neuro Exam: GCS15, awake/alert, oriented X3 working with PT daily, ambulating safely DC planning next 24h Alanna Dunham Sep 25, 2017 16:25 Alonzo Pretty MD Sep 25, 2017 23:29
--- NOTE | 2017-09-25 19:44 | ECHRPT ---
Indication: CONCLUSIONS Normal left ventricular size. Mild concentric left ventricular hypertrophy. The left ventricular systolic function is normal with an estimated ejection fraction in the range of 55-60%. The right atrial size is [id number] dilated. No atrial level shunt is demonstrated by color flow Doppler interrogation. Trace mitral valve regurgitation. Aortic valve sclerosis is present. Mild aortic valve regurgitation. There is trace tricuspid valve regurgitation. BP: 174 / 88 HR: 64 Rhythm: Sinus MEASUREMENTS (Male / Female) Normal Values Technical Quality:Fair 2D ECHO LV Diastolic Diameter PLAX 3.9 cm 4.2 - 5.9 / 3.9 - 5.3 cm LV Systolic Diameter PLAX 2.9 cm IVS Diastolic Thickness 1.4 cm 0.6 - 1.0 / 0.6 - 0.9 cm LVPW Diastolic Thickness 1.3 cm 0.6 - 1.0 / 0.6 - 0.9 cm LV Relative Wall Thickness 0.7 RV Internal Dim ED PLAX 4.0 cm LVOT Diameter 2.5 cm M-MODE Aortic Root Diameter MM 4.3 cm LA Systolic Diameter MM 3.6 cm LA Ao Ratio MM 0.8 AV Cusp Separation MM 1.8 cm DOPPLER AV Peak Velocity 138.0 cm/s AV Peak Gradient 7.6 mmHg LVOT Peak Velocity 108.0 cm/s LVOT Peak Gradient 4.7 mmHg AV Area Cont Eq pk 3.8 cm MV Area PHT 2.5 cm Mitral E Point Velocity 45.1 cm/s Mitral A Point Velocity 62.5 cm/s Mitral E to A Ratio 0.7 LV E' Lateral Velocity 8.7 cm/s Mitral E to LV E' Lateral Ratio 5.2 LV E' Septal Velocity 7.3 cm/s Mitral E to LV E' Septal Ratio 6.1 FINDINGS LEFT VENTRICLE Normal left ventricular size. Mild concentric left ventricular hypertrophy. The left ventricular systolic function is normal with an estimated ejection fraction in the range of 55-60%. RIGHT VENTRICLE Normal right ventricular size and systolic function. LEFT ATRIUM The left atrial size is normal. RIGHT ATRIUM The right atrial size is [id number] dilated. ATRIAL SEPTUM No atrial level shunt is demonstrated by color flow Doppler interrogation. AORTA The aortic root and proximal ascending aorta are not well visualized. MITRAL VALVE Trace mitral valve regurgitation. AORTIC VALVE Aortic valve sclerosis is present. Mild aortic valve regurgitation. TRICUSPID VALVE There is trace tricuspid valve regurgitation. PULMONARY VALVE Trivial pulmonary valve regurgitation. VESSELS The inferior vena cava is normal in size. PERICARDIUM No pericardial effusion. Danis Douglass MD, FACC (Electronically Signed) Final Date:25 September 2017 19:43
--- NOTE | 2017-09-25 19:52 | HHI.NSPN ---
(Lalo Liao) History Chief Complaint: Dizziness (Lalo Liao) Interval History 09/23: Mr. Amos is a pleasant 86-year-old gentleman who states that he was at a bar last evening and recalls getting up from the barstool and walking. He does not remember anything after that until he woke up in the hospital. He Was Transferred to [facility] after being seen at an outside hospital. Initial All Coma Score 15 upon arrival. He complains of mild headache. No nausea or vomiting today. He has no significant neck or low back pain. No blurred vision diplopia. No long-term memory loss. No significant pain weakness or numbness in the extremities except for some chronic left knee pain. He reportedly did have an episode of bradycardia requiring brief CPR for resuscitation after his CT scan in the emergency room. Due to this event he has been seen by cardiology and a 2-D echocardiogram recommended. 56 y.o male transfer from outside institution fell form bar stool and hit head- workup shows TBI with SAH/SDH,had short episode of SB and asystole had CPR for one minute-and stabilized with normal BP-GCS 15,his GCS was 14 in the transferring institution-it however improved to 15 in [place],neuro intact,no other complaints. 09/24: 56-year-old male fell at a bar while intoxicated. Complains of persistent headache and dizziness. No nausea vomiting 09/25: The patient is awake and watching TV when seen this afternoon. He does say he has a slight headache and some dizziness when he stands or turns to the right. He denies any pain, numbness or tingling to the extremities. He remains neurologically intact. (Lalo Liao) Exam Results 09/24/17 09/24/17 09/25/17 09/25/17 09/26/17 09/26/17 06:00 18:00 06:00 18:00 06:00 18:00 Intake Total 220 ml 1274 ml 240 ml Output Total 1550 ml 950 ml Balance -1330 ml 324 ml 240 ml Intake Oral 120 ml 220 ml 240 ml IV Total 100 ml 1054 ml Output Urine Total 1550 ml 950 ml # Voids 2 2 # Bowel Movements 0 Laboratory Tests Test 09/23/17 09:56 09/23/17 11:15 09/23/17 16:36 09/23/17 23:17 White Blood Count 7.2 TH/MM3 Red Blood Count 4.70 MIL/MM3 Hemoglobin 15.2 GM/DL Hematocrit 42.8 % Mean Corpuscular Volume 90.9 FL Mean Corpuscular Hemoglobin 32.2 PG Mean Corpuscular Hemoglobin Concent 35.4 % Red Cell Distribution Width 14.0 % Platelet Count 181 TH/MM3 Mean Platelet Volume 6.8 FL Neutrophils (%) (Auto) 84.6 % Lymphocytes (%) (Auto) 11.5 % Monocytes (%) (Auto) 3.8 % Eosinophils (%) (Auto) 0.0 % Basophils (%) (Auto) 0.1 % Neutrophils # (Auto) 6.1 TH/MM3 Lymphocytes # (Auto) 0.8 TH/MM3 Monocytes # (Auto) 0.3 TH/MM3 Eosinophils # (Auto) 0.0 TH/MM3 Basophils # (Auto) 0.0 TH/MM3 CBC Comment DIFF FINAL Differential Comment Prothrombin Time 10.7 SEC Prothromb Time International Ratio 1.1 RATIO Activated Partial Thromboplast Time 22.2 SEC Blood Urea Nitrogen 9 MG/DL Creatinine 0.89 MG/DL Random Glucose 117 MG/DL Calcium Level 8.0 MG/DL Sodium Level 136 MEQ/L Potassium Level 4.1 MEQ/L Chloride Level 100 MEQ/L Carbon Dioxide Level 23.2 MEQ/L Anion Gap 13 MEQ/L Estimat Glomerular Filtration Rate 88 ML/MIN Troponin I LESS THAN 0.02 NG/ML LESS THAN 0.02 NG/ML LESS THAN 0.02 NG/ML Nasal Screen MRSA (PCR) MRSA NOT DETECTED Total Creatine Kinase 285 U/L 265 U/L Test 09/24/17 03:41 White Blood Count 6.7 TH/MM3 Red Blood Count 4.76 MIL/MM3 Hemoglobin 15.2 GM/DL Hematocrit 43.9 % Mean Corpuscular Volume 92.2 FL Mean Corpuscular Hemoglobin 32.0 PG Mean Corpuscular Hemoglobin Concent 34.7 % Red Cell Distribution Width 14.0 % Platelet Count 175 TH/MM3 Mean Platelet Volume 7.3 FL Neutrophils (%) (Auto) 73.4 % Lymphocytes (%) (Auto) 16.1 % Monocytes (%) (Auto) 8.9 % Eosinophils (%) (Auto) 0.6 % Basophils (%) (Auto) 1.0 % Neutrophils # (Auto) 4.9 TH/MM3 Lymphocytes # (Auto) 1.1 TH/MM3 Monocytes # (Auto) 0.6 TH/MM3 Eosinophils # (Auto) 0.0 TH/MM3 Basophils # (Auto) 0.1 TH/MM3 CBC Comment DIFF FINAL Differential Comment Blood Urea Nitrogen 10 MG/DL Creatinine 0.95 MG/DL Random Glucose 87 MG/DL Calcium Level 8.4 MG/DL Sodium Level 141 MEQ/L Potassium Level 4.0 MEQ/L Chloride Level 106 MEQ/L Carbon Dioxide Level 28.4 MEQ/L Anion Gap 7 MEQ/L Estimat Glomerular Filtration Rate 81 ML/MIN Orders Procedure Category Date Status Time Admit To Inpatient ADMITTING 09/23/17 Transmitted Code Status CODE 09/23/17 Transmitted 07:56 Vital Signs (Adult) JUSTICE 09/23/17 In Process 07:56 Elevate Head Of Bed JUSTICE 09/23/17 In Process 07:56 Sodium Chlor 0.9% MED 09/23/17 Complete 1000 Ml Inj (Ns 1000 M 07:56 Hydromorphone Pf Inj MED 09/23/17 Complete (Dilaudid Pf Inj) 08:00 Famotidine Inj MED 09/23/17 Complete (Pepcid Inj) 09:00 Famotidine (Pepcid) MED 09/23/17 Complete 09:00 Ondansetron Inj MED 09/23/17 In Process (Zofran Inj) 08:00 Complete Blood Count LAB 09/24/17 Complete With Diff 04:00 Basic Metabolic Panel LAB 09/24/17 Complete (Bmp) 04:00 Supervisor Lace Tearing / JUSTICE 09/23/17 Complete Telemetry 07:56 Scd Bilateral/Knee JUSTICE 09/23/17 In Process High 07:56 ^ Initiate Protocol JUSTICE 09/23/17 In Process 07:56 Instruction JUSTICE 09/23/17 In Process 07:56 [facility] MED 09/23/17 Complete Information 08:00 Chlorhexidine 2% MED 09/24/17 Complete Cloth (Chlorhexidine 04:00 Chlorhexidine 2% MED 09/23/17 Complete Cloth (Chlorhexidine 08:00 Mrsa Pcr Surveillance LAB 09/23/17 Complete 07:56 Docusate Sodium-Senna MED 09/23/17 In Process (Cara-Colace) 09:00 Magnesium Hydroxide MED 09/23/17 In Process Liq (Milk Of Magnesi 08:00 Sennosides (Senokot) MED 09/23/17 In Process 08:00 Bisacodyl Supp MED 09/23/17 In Process (Dulcolax Supp) 08:00 Lactulose Liq MED 09/23/17 In Process (Lactulose Liq) 08:00 Inpatient ADMITTING 09/23/17 Transmitted Certification Diet Clear Liquid DIET 09/23/17 Complete Breakfast Acetaminophen 1000 MED 09/23/17 Complete Mg/100 Ml (Ofirmev 10 09:00 Ct Brain W/O Iv RADCT 09/23/17 Resulted Contrast(Rout) Admit Order (Ed Use ADMITTING 09/23/17 Transmitted Only) 08:50 Ondansetron Inj MED 09/23/17 Complete (Zofran Inj) 09:15 Etomidate Inj MED 09/23/17 Complete (Amidate Inj) 09:05 Levetiracetam Inj MED 09/23/17 Complete (Keppra Inj) 09:30 Consult Neurosurgery CONS 09/23/17 Transmitted Consult Jes Gts CONS 09/23/17 Transmitted Activity Bed Rest JUSTICE 09/23/17 In Process 09:25 Intake + Output JUSTICE 09/23/17 Complete 09:25 Multivitamin Inj MED 09/23/17 Complete (Mvi-12 Inj)... 10:00 Complete Blood Count LAB 09/23/17 Complete With Diff 09:32 Basic Metabolic Panel LAB 09/23/17 Complete (Bmp) 09:32 Troponin I LAB 09/23/17 Complete 09:32 Electrocardiogram CAV 09/23/17 Resulted Consult Billing Coordinator CONS 09/23/17 Transmitted Coag Profile LAB 09/23/17 Complete 09:32 (Hub Use Only)Inp Phy CONS 09/23/17 Transmitted Cons/Ref (Hub Use Only)Inp Phy CONS 09/23/17 Transmitted Cons/Ref Consult Cardiology CONS 09/23/17 Transmitted (Hub Use Only)Inp Phy CONS 09/23/17 Transmitted Cons/Ref Albuterol Hfa Inh MED 09/23/17 In Process (Proair Hfa Inh) 11:15 Budoysvanyon-Formot 80-4.5 MED 09/23/17 In Process Mcg Inh (Symbicort 11:15 Troponin I LAB 09/23/17 Complete 16:00 Troponin I LAB 09/23/17 Complete 22:00 Creatine Kinase (Cpk) LAB 09/23/17 Complete 16:00 Creatine Kinase (Cpk) LAB 09/23/17 Complete 22:00 Case Management CONS 09/23/17 Transmitted Consult Consult Pt Eval & PT 09/23/17 Logged Treat 11:38 Electrocardiogram CAV 09/23/17 Resulted 07:57 Family Notification JUSTICE 09/23/17 Complete 13:10 Audit-Alcohol JUSTICE 09/23/17 In Process Screening Assess 13:10 Alcohol Withdrawal JUSTICE 09/23/17 In Process Asmt-Ciwa 13:10 Teaching Record: JUSTICE 09/23/17 Complete Alcohol 13:10 Ct Brain W/O Iv RADCT 09/24/17 Resulted Contrast(Rout) 06:00 Hydromorphone Pf Inj MED 09/23/17 Complete (Dilaudid Pf Inj) 22:15 Levetiracetam (Keppra) MED 09/24/17 In Process 21:00 Famotidine (Pepcid) MED 09/24/17 In Process 21:00 Patient Transfer ADMITTING 09/24/17 Transmitted Activity Oob With JUSTICE 09/24/17 In Process Assistance 09:26 Us Carotid Arteries RADUS 09/24/17 Resulted Comp Bilat Oxycodone-Acetamin MED 09/24/17 In Process 5-325 Mg (Percocet 09:30 Oxycodone-Acetamin MED 09/24/17 Complete 10-325 Mg (Percocet 1 09:30 Lisinopril (Prinivil) MED 09/24/17 Complete 10:30 Trauma Office Use NTRACS 09/23/17 Transmitted Only Diet Regular Basic DIET 09/24/17 Transmitted Dinner Acetaminophen MED 09/24/17 In Process (Tylenol) 21:00 Lisinopril (Prinivil) MED 09/24/17 In Process 21:00 Amlodipine (Norvasc) MED 09/25/17 Complete 09:00 Echo 2d Comp With ECH 09/25/17 Resulted Doppler Clonidine (Catapres) MED 09/25/17 In Process 21:00 Amlodipine (Norvasc) MED 09/26/17 In Process 09:00 Vital Signs Date Time Temp Pulse Resp B/P (MAP) Pulse Ox O2 Delivery O2 Flow Rate FiO2 09/25/17 16:00 97.7 66 18 145/79 (101) 94 09/25/17 12:23 98.1 59 18 172/89 (116) 94 09/25/17 08:00 98.4 65 17 153/88 (109) 94 09/25/17 04:41 97.9 59 17 148/81 (103) 94 09/25/17 00:33 98.5 50 17 163/90 (114) 94 09/24/17 20:13 98.4 57 17 163/88 (113) 95 09/24/17 18:11 167/87 (113) 09/24/17 18:02 98.2 58 18 174/88 (116) 95 09/24/17 16:00 99.5 61 16 140/82 (101) 96 09/24/17 15:23 16 09/24/17 12:00 64 09/24/17 12:00 98.7 64 16 142/84 (103) 94 09/24/17 08:00 97 Room Air 09/24/17 08:00 64 09/24/17 08:00 99.0 64 16 151/85 (107) 97 09/24/17 06:03 63 09/24/17 04:21 60 16 141/79 (99) 93 09/24/17 04:20 63 09/24/17 00:00 64 09/24/17 00:00 64 14 150/71 (97) 95 09/23/17 23:01 98.6 70 14 142/75 (97) 94 09/23/17 22:59 68 09/23/17 19:00 94 Nasal Cannula 09/23/17 18:00 75 09/23/17 16:00 98.5 81 17 122/66 (84) 93 09/23/17 16:00 81 09/23/17 14:00 74 09/23/17 12:00 98.8 75 16 116/66 (83) 93 09/23/17 12:00 75 09/23/17 10:30 75 09/23/17 10:30 99.1 76 16 144/76 (98) 97 09/23/17 10:30 97 Room Air 09/23/17 10:23 09/23/17 09:18 98 Nasal Cannula 2.00 09/23/17 09:09 71 14 144/80 (101) 100 Nasal Cannula 2.00 09/23/17 07:49 97.9 86 21 150/84 (106) 95 (Lalo Liao) Physical Examination GENERAL: Awake & alert, watching TV. Affect essentially normal, readily interacts. No apparent distress. HEENT: Normocephalic, atraumatic. PERRLA 3 mm brisk, EOMI. MMM & pink, tongue midline to protrusion. MUSCULOSKELETAL: XIONG spontaneously & purposefully. TTP at left knee which is chronic. NEUROLOGICAL: AAOx3. Speech clear & appropriate. Follows simple commands w/o difficulty. CN II through XII grossly intact. PERRLA 3 mm brisk, EOMI. Tongue midline to protrusion. Sensation is intact to light touch to all extremities. Motor strength is 5/5 to all major flexion & extension muscle groups of the extremities, to include the wrist flexors & extensors and the hand intrinsics & extrinsics. (Lalo Liao) Lab, Micro, Other Results Recent Impressions Head CT 09/24/17 0600 Signed Impressions: Service Date/Time: Sunday, September 24, 2017 05:25 - CONCLUSION: 1. Stable areas of right-sided parenchymal and subarachnoid hemorrhage. 2. Resolving contusion/encephalomalacia in the right olfactory tract. 3. No midline shift. No new hemorrhage. Yobani Mccall MD Carotid Artery Ultrasound 09/24/17 0000 Signed Impressions: Service Date/Time: Sunday, September 24, 2017 12:34 - CONCLUSION: 1. Minimal are described plaquing of the bifurcations. 2. No hemodynamically significant carotid artery stenosis identified. Zhang Koenig MD Head CT 09/23/17 0000 Signed Impressions: Service Date/Time: Saturday, September 23, 2017 08:35 - CONCLUSION: Abnormal exam with intraparenchymal blood products identified within the right frontal lobe, right parietal lobe and right temporal lobe. Small amount of subarachnoid blood identified in the region of the sylvian fissure. There is mild effacement of the sulci within this region. No skull fractures seen. Viviana Michele MD Laboratory Tests Test 09/23/17 09:56 09/23/17 11:15 09/23/17 16:36 09/23/17 23:17 White Blood Count 7.2 TH/MM3 Red Blood Count 4.70 MIL/MM3 Hemoglobin 15.2 GM/DL Hematocrit 42.8 % Mean Corpuscular Volume 90.9 FL Mean Corpuscular Hemoglobin 32.2 PG Mean Corpuscular Hemoglobin Concent 35.4 % Red Cell Distribution Width 14.0 % Platelet Count 181 TH/MM3 Mean Platelet Volume 6.8 FL Neutrophils (%) (Auto) 84.6 % Lymphocytes (%) (Auto) 11.5 % Monocytes (%) (Auto) 3.8 % Eosinophils (%) (Auto) 0.0 % Basophils (%) (Auto) 0.1 % Neutrophils # (Auto) 6.1 TH/MM3 Lymphocytes # (Auto) 0.8 TH/MM3 Monocytes # (Auto) 0.3 TH/MM3 Eosinophils # (Auto) 0.0 TH/MM3 Basophils # (Auto) 0.0 TH/MM3 CBC Comment DIFF FINAL Differential Comment Prothrombin Time 10.7 SEC Prothromb Time International Ratio 1.1 RATIO Activated Partial Thromboplast Time 22.2 SEC Blood Urea Nitrogen 9 MG/DL Creatinine 0.89 MG/DL Random Glucose 117 MG/DL Calcium Level 8.0 MG/DL Sodium Level 136 MEQ/L Potassium Level 4.1 MEQ/L Chloride Level 100 MEQ/L Carbon Dioxide Level 23.2 MEQ/L Anion Gap 13 MEQ/L Estimat Glomerular Filtration Rate 88 ML/MIN Troponin I LESS THAN 0.02 NG/ML LESS THAN 0.02 NG/ML LESS THAN 0.02 NG/ML Nasal Screen MRSA (PCR) MRSA NOT DETECTED Total Creatine Kinase 285 U/L 265 U/L Test 09/24/17 03:41 White Blood Count 6.7 TH/MM3 Red Blood Count 4.76 MIL/MM3 Hemoglobin 15.2 GM/DL Hematocrit 43.9 % Mean Corpuscular Volume 92.2 FL Mean Corpuscular Hemoglobin 32.0 PG Mean Corpuscular Hemoglobin Concent 34.7 % Red Cell Distribution Width 14.0 % Platelet Count 175 TH/MM3 Mean Platelet Volume 7.3 FL Neutrophils (%) (Auto) 73.4 % Lymphocytes (%) (Auto) 16.1 % Monocytes (%) (Auto) 8.9 % Eosinophils (%) (Auto) 0.6 % Basophils (%) (Auto) 1.0 % Neutrophils # (Auto) 4.9 TH/MM3 Lymphocytes # (Auto) 1.1 TH/MM3 Monocytes # (Auto) 0.6 TH/MM3 Eosinophils # (Auto) 0.0 TH/MM3 Basophils # (Auto) 0.1 TH/MM3 CBC Comment DIFF FINAL Differential Comment Blood Urea Nitrogen 10 MG/DL Creatinine 0.95 MG/DL Random Glucose 87 MG/DL Calcium Level 8.4 MG/DL Sodium Level 141 MEQ/L Potassium Level 4.0 MEQ/L Chloride Level 106 MEQ/L Carbon Dioxide Level 28.4 MEQ/L Anion Gap 7 MEQ/L Estimat Glomerular Filtration Rate 81 ML/MIN (Lalo Liao) Medical Decision Making Impression and Plan Impression: 1. Traumatic brain injury. Primarily right frontoparietal contusions and subarachnoid hemorrhage without significant mass effect. Stable on follow-up CT scan 09/24/17 Patient continues to do well and remains neurologically intact. Still w/slight headache, also has some dizziness with movement. Intermittent hypertension. Plan: Primary management per Trauma Service. Neuro checks. Stat CT for any decline in neuro status. Hold pharmacologic DVT prophylaxis. Mechanical DVT prophylaxis. Mobilise patient w/assistance. Physical Therapy eval & tx. (Lalo Liao) Attending Statement The exam, history, and the medical decision-making described in the above note were completed with the assistance of the mid-level provider. I reviewed and agree with the findings presented. I attest that I had a [id number] encounter with the patient on the same day, and personally performed and documented my assessment and findings in the medical record. On my examination 09/25/17, the patient is awake and alert. No confusion or agitation. Answers questions appropriately Extraocular movements and facial motor movements symmetric Sensation of light touch and motor strength intact all extremities Doing well from neurosurgical standpoint following traumatic brain injury. 09/24/17 CT scan head revealed relatively stable subarachnoid hemorrhage and contusion without significant mass effect. May advance diet and activity as tolerated. She will be able to discharge home under the care of his family over the next one-2 days. Follow-up CT scan of the head should be checked in approximately 10-14 days to assess for subacute subdural hematoma formation or subdural effusion post trauma. (Hosea Carter MD) Lalo Liao Sep 25, 2017 19:52 Hosea Carter MD Sep 26, 2017 00:11
[2017-09-25 20:01] VITALS: BP 156/78; PULSE 68; RESP 18; TEMP 98.2; O2SAT 94
[2017-09-25] MEDS: cloNIDine HCL 0.1 MG TAB PO SCH (20:19)
[2017-09-25] MEDS: oxyCODONE/ACETAMINOPHEN 5 MG/325 MG TAB PO PRN (20:20)
[2017-09-26] VITALS: BP 131/74; PULSE 59; RESP 18; TEMP 98.3; O2SAT 93
[2017-09-26 04:44] VITALS: BP 141/74; PULSE 61; RESP 20; TEMP 98.4; O2SAT 95
[2017-09-26] MEDS ORDERED: LISI-515 PO (06:37)
[2017-09-26] MEDS ORDERED: AMLO10 PO (06:37)
[2017-09-26] MEDS ORDERED: CLON.1 PO (06:37)
[2017-09-26 07:46] VITALS: BP 141/85; PULSE 58; RESP 19; TEMP 97.9; O2SAT 94
[2017-09-26] MEDS ORDERED: WALKER WHEELS/F1 MIS (07:52)
[2017-09-26] MEDS: LISINOPRIL 20 MG TAB PO SCH (08:51)
[2017-09-26] MEDS: DOCUSATE SODIUM 50 MG/SENNA 8.6 MG TAB PO SCH (08:52)
[2017-09-26] MEDS: ACETAMINOPHEN 325 MG TAB PO PRN (08:52)
[2017-09-26] MEDS: levETIRAcetam 500 MG TAB PO SCH (08:52)
[2017-09-26] MEDS: FAMOTIDINE 20 MG TAB PO SCH (08:53)
[2017-09-26] MEDS: cloNIDine HCL 0.1 MG TAB PO SCH (08:53)
[2017-09-26] MEDS: BUDESONIDE-FORMOTEROL 80/4.5 MCG INHALER INH SCH (08:54)
[2017-09-26] MEDS: oxyCODONE/ACETAMINOPHEN 5 MG/325 MG TAB PO PRN (11:33)
[2017-09-26 12:12] VITALS: BP 117/78; PULSE 67; RESP 20; TEMP 98.2; O2SAT 94
--- NOTE | 2017-09-26 15:54 | HHI.DS ---
Discharge Summary Admission Date Sep 23, 2017 at 08:52 Discharge Date: Sep 26, 2017 Admitting Diagnosis subarachnoid hemorrhage, subdural hemorrhage, alcohol intoxication (1) Closed head injury ICD Codes: S09.90XA - Unspecified injury of head, initial encounter (2) Fall, initial encounter ICD Codes: W19.XXXA - Unspecified fall, initial encounter Diagnosis: Principal (3) Bradycardic cardiac arrest ICD Codes: R00.1 - Bradycardia, unspecified; I46.2 - Cardiac arrest due to underlying cardiac condition (4) HTN (hypertension) ICD Codes: I10 - Essential (primary) hypertension Brief History S/P Trauma: Fall CBC/BMP: 09/24/17 0341 09/24/17 0341 Significant Findings Laboratory Tests Test 09/23/17 16:36 09/23/17 23:17 09/24/17 03:41 Troponin I LESS THAN 0.02 NG/ML LESS THAN 0.02 NG/ML Neutrophils (%) (Auto) 73.4 % (16.0-70.0) Monocytes (%) (Auto) 8.9 % (0.0-8.0) Calcium Level 8.4 MG/DL (8.5-10.1) Estimat Glomerular Filtration Rate 81 ML/MIN (>89) Imaging Last Impressions Head CT 09/24/17 0600 Signed Impressions: Service Date/Time: Sunday, September 24, 2017 05:25 - CONCLUSION: 1. Stable areas of right-sided parenchymal and subarachnoid hemorrhage. 2. Resolving contusion/encephalomalacia in the right olfactory tract. 3. No midline shift. No new hemorrhage. Yobani Mccall MD Carotid Artery Ultrasound 09/24/17 0000 Signed Impressions: Service Date/Time: Sunday, September 24, 2017 12:34 - CONCLUSION: 1. Minimal are described plaquing of the bifurcations. 2. No hemodynamically significant carotid artery stenosis identified. Zhang Koenig MD PE at Discharge GENERAL: 56-year-old well-nourished, well developed male lying in bed in no acute distress. SKIN: Warm and dry. HEAD: Normocephalic. EYES: Pupils equal and round. No scleral icterus. ENT: No nasal bleeding or discharge. Mucous membranes pink and moist. NECK: Trachea midline. No JVD. CARDIOVASCULAR: Regular rate and rhythm. RESPIRATORY: No accessory muscle use. Lungs clear to auscultation. Breath sounds equal bilaterally. GASTROINTESTINAL: Abdomen soft, non-tender, nondistended. + BS. MUSCULOSKELETAL: Extremities without cyanosis, or edema. MAEW, + perfused NEUROLOGICAL: Awake and alert. Normal speech. Hospital Course [place]: Fell off a barstool striking his head. + LOC. Required short period of CPR with ROSC after 1 minute. Transferred for trauma services. INJURIES: RIGHT frontal, parietal, temporal IPH SAH PMHx: asthma, ETOH use, HTN RIGHT frontal, parietal, temporal IPH, SAH Neurosurgery consulted Supportive care No seizure activity Repeat CT brain on 09/24 stable Avoid second head injury Post-concussive education Fall US Carotids- minimal plaque BILAT EKG- SR Echo: EF 55-60%, mild ventricular hypertrophy, right atrial size mild- mod dilated. Trace valve regurg HTN Lisinopril 20mg PO BID Norvasc 10mg QD Clonidine 0.1mg BID Sent home with BP Rx's Follow-up with cardiology as outpatient Follow-up with PCP in 1 week Plan of care discussed with patient at bedside. Collaborating trauma M.D. agrees with plan. Case management consulted to assist with discharge planning. Patient is clear from trauma surgery standpoint to safely discharge home. Pt Condition on Discharge: Stable Discharge Disposition: Discharge Home Discharge Instructions DIET: Follow Instructions for: As Tolerated, No Restrictions Activities you can perform: Full Weight Bearing Activities to Avoid: Driving for 24 hrs, Concussion Sports, Contact Sports, Strenuous Activity Alanna Dunham Sep 26, 2017 15:54
== END 2017-09-26 13:19 | disposition home or self-care (01) | DRG 85 ==
LOC: NEPE 07:43 → NEDA 08:52 → N03A 10:24 → N05B 09-24 17:31
PROVIDERS: ADMIT Surgery Trauma Surgery; ATTEND Surgery Trauma Surgery
PROC: 5A12012 Performance of Cardiac Output, Single, Manual (ICD-10-PCS; principal; 2017-09-23)
DX: S06.6X0A Traumatic subarachnoid hemorrhage without loss of consciousness, initial encounter (principal); I46.9 Cardiac arrest, cause unspecified; I10 Essential (primary) hypertension; R00.1 Bradycardia, unspecified; J45.909 Unspecified asthma, uncomplicated; M25.562 Pain in left knee; G89.29 Other chronic pain; F10.129 Alcohol abuse with intoxication, unspecified; R40.2410 Glasgow coma scale score 13-15, unspecified time; W07.XXXA Fall from chair, initial encounter; Z72.0 Tobacco use
CPT/HCPCS: 70450; 80048; 82550; 84484; 85025; 85610; 85730; 87641; 93005; 93306; 93880; 99285; J0131; J1170; J1953; J2405; J3411; J7030; J7040